=== PATIENT | female | born 1975 | race Caucasian/White ===

== ENCOUNTER 2016-06-09 08:55 | Outpatient (CLI) ==
[2012-11-13 17:19] VITALS: TEMP 98.6
[2016-05-04 08:47] VITALS: BMI 29.6
--- NOTE | 2016-06-09 09:49 | DI ---
EXAM: Two views of the right hip. History: Right hip pain. Findings: No acute fracture or dislocation. The right hip joint space is preserved. Small pelvic calcifications are probably phleboliths. Impression: No acute osseous abnormality and no degenerative joint disease of the right hip.
--- NOTE | 2016-06-09 13:01 | MRI ---
EXAM: MRI left hand without contrast. HISTORY: Pain in left thumb and fat pad under thumb and fingers. No known injury. No left hand thornton rgery reported.. TECHNIQUE: Using a local extremity coil on a high field strength magnet multiplanar multisequence l arge field of view imaging obtained through the level of the left hand without intravenous or intra- articular gadolinium contrast. Note this constitutes incomplete MR evaluation of the left wrist.. COMPARISON: Four view plain film examination left hand 07/30/2013.. FINDINGS: The alignment of the left hand shows slight radial subluxation of the first metacarpal wi th respect to the trapezium. There is a osteoarthrosis first carpometacarpal joint with trace effus ion as well as capsular/ligamentous hypertrophy/sprain. Disproportionate bone marrow edema througho ut the trapezium. Approximate 10 mm bright T2 fluid signal intensity extracapsular cyst along the ra dial sided aspect of the first carpometacarpal joint may represent extracapsular synovial/ganglion c yst. Mild radiocarpal joint osteoarthrosis as well as involvement of the piso-triquetral joint. The palmar flexor and dorsal extensor tendons intact without tenosynovitis or tendon bow stringing. Along the carpal tunnel the overall morphology of the median nerve shows flattening. Some questiona ble increased signal intensity. No fluid signal intensity along the carpal tunnel. The course of G uyons canal within normal limit in appearance.. Visualized muscle bulk shows normal signal intensit y. IMPRESSION: Slight radial subluxation of the first metacarpal with respect to the trapezium. Osteo arthrosis first carpometacarpal joint with trace effusion as well as capsular/ligamentous hypertroph y/sprain. Disproportionate bone marrow edema throughout the trapezium. 10 mm extracapsular cyst along the radial sided aspect of the first carpometacarpal joint may repres ent extracapsular synovial/ganglion cyst. Mild osteoarthrosis radiocarpal joint as well as piso- tr iquetral joint. Some questionable flattened morphology of the median nerve along the carpal tunnel as well as increa sed signal intensity. Correlate clinically for signs/symptoms of carpal tunnel syndrome. Recommendation is obtainment and correlation with recent plain film radiographs of the left hand as none are available for comparison at the time of this dictation.
== END 2016-06-09 08:56 | disposition home or self-care (01) ==
LOC: RAD 08:55
PROVIDERS: ATTEND Nurse Practitioner Family
DX: M25.551 Pain in right hip (principal); M79.645 Pain in left finger(s)

== ENCOUNTER 2016-09-14 11:53 | Outpatient (CLI) ==
[2012-11-13 17:19] VITALS: TEMP 98.6
[2016-05-04 08:47] VITALS: BMI 29.6
--- NOTE | 2016-09-14 14:56 | MRI ---
EXAM: MRI right hip without contrast. HISTORY: Right hip pain. Pain when sleeping when walking. No right hip surgery.. TECHNIQUE: Using a body phased array coil on a high field strength magnet transaxial and coronal sh ort TR/TE non-fat suppressed, transaxial long TR/TE fat-suppressed and coronal STIR large field of v iew imaging obtained through the level of both hip joints. Additional sagittal long TR/TE non-fat s uppressed smaller field of view imaging obtained through the level of the right hip joint only. No intravenous or intra-articular gadolinium contrast administered.. COMPARISON: Two-view plain film examination right hip 06/09/2016. FINDINGS: Both sacroiliac joints intact without joint effusion or bone ankylosis. Visualized bone marrow signal intensity of the sacrum, pelvis, and proximal femora shows no acute fracture, stress f racture or discrete lytic or blastic lesion. Degenerative change pubic symphysis. Both femoral heads seated with normal femoral heads sphericity and lateral coverage. No joint cente red subchondral bone marrow edema or bone erosions involving either hip. No hip effusions or large surrounding paralabral cysts. Bilateral gluteus medius/minimus tendinosis/strain , right greater th an left. Question component of right greater trochanteric bursitis superimposed. No iliopsoas burs itis. Both proximal hamstring origins intact. Course of the right and left sciatic nerve within no rmal limit. No enlarged inguinal lymphadenopathy or bowel herniation. No enlarged pelvic sidewall lymphadenopat hy. Small amount of free fluid pelvis. Uterus present. Bilateral ovaries present. Bladder of nor mal morphology.. IMPRESSION: No acute fracture, stress fracture or avascular necrosis involving either hip. No hip effusions. Bilateral gluteus medius/minimus tendinosis/strain, right greater than left. Question c omponent of right greater trochanteric bursitis superimposed. Degenerative change pubic symphysis. Small amount of free fluid pelvis.
== END 2016-09-14 11:54 | disposition home or self-care (01) ==
LOC: RAD 11:53
PROVIDERS: ATTEND Nurse Practitioner Family
DX: M25.551 Pain in right hip (principal)

== ENCOUNTER 2018-08-12 14:15 | Emergency (ER) ==
[2018-08-12 14:21] VITALS: BP 135/73; TEMP 98.8; BMI 30.2
--- NOTE | 2018-08-12 15:45 | ED.PDOC ---
General ED Provider: Dr. CACHORRO BONILLA Chief Complaint: Urinary Problem Stated Complaint: URINARY TRACT SIGN AND SYMPTOMS Time Seen by Physician: 14:30 (SEEN WITH CORINE) Mode of Arrival: Walk-In Information Source: Patient Exam Limitations: No limitations Primary Care Provider: LEN POND Nursing and Triage Documentation Reviewed and Agree: Yes Does patient meet sepsis criteria?: No System Inflammatory Response Syndrome: Not Applicable Sepsis Protocol: For patient's 13 years and over: Temp is 96.8 and below OR 101 and greater Pulse >90 BPM Resp >20/minute Acutely Altered Mental Status Are patient's symptoms suggestive of a new infection, such as: -Pneumonia -Skin, Soft Tissue -Endocarditis -UTI -Bone, Joint Infection -Implantable Device -Acute Abdominal Infection -Wound Infection -Meningitis -Blood Stream Catheter Infection -Unknown Complaint Exam - Complaint/Exam Patient Complains of: Reports: Dysuria Onset/Duration: 1 DAY Symptoms Are: Still present Timing: Intermittent Episodes of Voiding Over Last 12 Hours: 5 Initial Severity: Mild Current Severity: Mild Location of Pain: Reports: Suprapubic Character: Reports: Burning Aggravating: Reports: None Alleviating: Reports: None Associated Signs and Symptoms: Reports: Dysuria. Denies: Diaphoresis, Back pain , Fever, Hematuria, Constipation, Blood in stool, Rectal pain, Appetite change, Nausea, Vomiting, Decreased urine output, Increased urine frequency, Increased thirst, Decreased activity, Lethargy, Abdominal Pain, Bubble bath use, Vaginal bleeding, Vaginal discharge, Genital swelling, Genital blisters, Retained foreign body Ectopic Risk Factors: Reports: None Ovarian Torsion Risk Factors: Reports: None Surgical Obstruction Risk Factors: Reports: None RH Status: Unknown Related Surgical History: Reports: None Abdominal Findings: Present: None Differential Diagnoses: UTI Review of Systems - Review Of Systems Constitutional: Reports: No symptoms Eyes: Reports: No symptoms Ears, Nose, Mouth, Throat: Reports: No symptoms Respiratory: Reports: No symptoms Cardiac: Reports: No symptoms GI: Reports: No symptoms : Reports: Dysuria Musculoskeletal: Reports: No symptoms Skin: Reports: No symptoms Neurological: Reports: No symptoms Endocrine: Reports: No symptoms Hematologic/Lymphatic: Reports: No symptoms All Other Systems: Reviewed and Negative Past Medical History - Past Medical History Previously Healthy: No Endocrine: Reports: None Cardiovascular: Reports: None Respiratory: Reports: None Hematological: Reports: None Gastrointestinal: Reports: None Genitourinary: Reports: Other Neuro/Psych: Reports: Anxiety, Depression Musculoskeletal: Reports: None Cancer: Reports: None Last Menstrual Period: 07/28/2018 - Surgical History General Surgical History: Reports: Unknown - Family History Family History: Reports: Unknown - Social History Smoking Status: Never smoker Hx Substance Use: No Alcohol Screening: Occasionally - Immunizations Tetanus Shot up to Date: Yes Physical Exam - Physical Exam Appearance: Well-appearing, No pain distress, Well-nourished Eyes: KASANDRA, EOMI, Conjunctiva clear ENT: Ears normal, Nose normal, Oropharynx normal Respiratory: Airway patent, Breath sounds clear, Breath sounds equal, Respirations nonlabored Cardiovascular: RRR, Pulses normal, No rub, No murmur GI/: Soft, Nontender, No masses, Bowel sounds normal, No Organomegaly Musculoskeletal: Normal strength, ROM intact, No edema, No calf tenderness Skin: Warm, Dry, Normal color Neurological: Sensation intact, Motor intact, Reflexes intact, Cranial nerves intact, Alert, Oriented Psychiatric: Affect appropriate, Mood appropriate Critical Care Note - Critical Care Note Total Time (mins): 0 Course - Course Orders, Labs, Meds: Lab Review 08/12/18 15:13 Urine Color Yellow Urine Clarity Slightly Urine pH 7.0 Ur Specific [place] 1.015 Urine Protein Negative Urine Glucose (UA) Negative Urine Ketones Negative Urine Blood 2+ Urine Nitrite Negative Urine Bilirubin Negative Urine Urobilinogen 1.0 Ur Leukocyte Esterase 2+ Urine Microscopic RBC 0-2 Urine Microscopic WBC 5-10 Ur Squamous Epith Cells 0-2 Urine Bacteria Trace Orders Category Date Time Status URINALYSIS C & S IF INDICATED Stat LAB 08/12/18 15:13 Completed URINE CULTURE Stat LAB 08/12/18 15:13 Received Vital Signs: Temp Pulse Resp BP Pulse Ox 08/12/18 14:15 98.8 F 92 H 16 135/73 97 Departure - Departure Time of Disposition: 15:45 Disposition: HOME SELF-CARE Discharge Problem: Urinary tract infectious disease Instructions: Urinary Tract Infection in Women (ED), Dysuria (ED), Urinary Urgency and Frequency (DC) Condition: Good Pt referred to PMD for follow-up: Yes IPMP verified?: No Additional Instructions: Please call your Family Physician as soon as possible to schedule a follow-up appointment. Allergies/Adverse Reactions: Allergies No Known Allergies Allergy (Verified 08/12/18 15:08) Home Medications: Ambulatory Orders Alprazolam 0.5 mg PO BID 07/26/15 Cyclobenzaprine HCl [Flexeril] 10 mg PO BEDTIME 03/24/17 Zolpidem Tartrate [Ambien] 10 mg PO BEDTIME 03/24/17
== END 2018-08-12 16:02 | disposition home or self-care (01) ==
LOC: ED 14:15
DX: N39.0 Urinary tract infection, site not specified (principal)
CPT/HCPCS: 81001; 87086; 99283